=== PATIENT | female | born 1995 | race Caucasian/White ===

== ENCOUNTER 2017-05-04 10:49 | Emergency (ER) | payer OTHER ==
[~2017-05-04] VITALS: Ht 167.6 cm; Wt 60.0 kg
[2017-05-04 10:54] VITALS: BP 120/75; PULSE 72; RESP 16; TEMP 98.6; O2SAT 100
[2017-05-04] MEDS ORDERED: LORazepam 1 MG TAB PO ONE (11:15)
[2017-05-04] MEDS ORDERED: ACETAMINOPHEN 325 MG TAB PO ONE (11:15)
--- NOTE | 2017-05-04 11:24 | PD ---
HPI Chief Complaint: Neuro Symptoms/ Deficits Time Seen by Provider: 11:10 Travel History International Travel<30 days: No Contact w/Intl Traveler<30days: No Traveled to known affect area: No History of Present Illness HPI 22yo F with PMH of anxiety here with c/o episode of tingling sensation in bilateral arms while at work today. States now she just has tingling in bilateral finger tips. States she was looking at a credit card and didnt know what to say for a second. Then she started having bilateral temporal headache. States tingling was in the proximal and distal arms but spares the middle. She has had these episodes before. Pt denies any fever, cough, neck pain, chest pain, sob, n/v, abdominal pain, focal weakness. Denies any drug use. PFSH Past Medical History Medical History: Denies Significant Hx ?: Not LMP: IMPLANT Past Surgical History Surgical History: No Previous Surgery Social History Alcohol Use: No Tobacco Use: No Substance Use: No Allergies-Medications (Allergen,Severity, Reaction): Coded Allergies: Sean (Verified Allergy, Severe, HIVES, 05/04/17) Reported Meds & Prescriptions Reported Meds & Active Scripts Active Tylenol (Acetaminophen) 325 Mg Tab 650 Mg PO Q6H PRN Review of Systems Except as stated in HPI: all other systems reviewed are Neg Physical Exam Narrative GENERAL: 22yo F anxious appearing. SKIN: Focused skin assessment warm/dry. HEAD: Atraumatic. Normocephalic. EYES: Pupils equal and round at 4mm bilaterally. EOMI. No scleral icterus. No injection or drainage. ENT: No nasal bleeding or discharge. Mucous membranes pink and moist. NECK: Trachea midline. No JVD. CARDIOVASCULAR: Regular rate and rhythm. No murmur appreciated. RESPIRATORY: No accessory muscle use. Clear to auscultation. Breath sounds equal bilaterally. GASTROINTESTINAL: Abdomen soft, non-tender, nondistended. No rebound tenderness or guarding. MUSCULOSKELETAL: No obvious deformities. No clubbing. No cyanosis. No edema. Tremors in her chin, states she always has this and it is related to her jaw muscles. NEUROLOGICAL: Awake and alert. No obvious cranial nerve deficits. Motor grossly within normal limits. Normal speech. PSYCHIATRIC: Anxious appearing. Data Data Last Documented VS Vital Signs Date Time Temp Pulse Resp B/P Pulse Ox O2 Delivery O2 Flow Rate FiO2 05/04/17 10:54 98.6 72 16 120/75 100 Room Air Orders Lorazepam (Ativan) (05/04/17 11:15) Acetaminophen (Tylenol) (05/04/17 11:15) Complete Blood Count With Diff (05/04/17 11:10) Basic Metabolic Panel (Bmp) (05/04/17 11:10) Thyroid Stimulating Hormone (05/04/17 11:10) Electrocardiogram (05/04/17 ) Labs Laboratory Tests Test 05/04/17 11:20 White Blood Count 8.3 TH/MM3 Red Blood Count 4.81 MIL/MM3 Hemoglobin 14.5 GM/DL Hematocrit 41.7 % Mean Corpuscular Volume 86.8 FL Mean Corpuscular Hemoglobin 30.1 PG Mean Corpuscular Hemoglobin 34.7 % Concent Red Cell Distribution Width 13.4 % Platelet Count 276 TH/MM3 Mean Platelet Volume 6.4 FL Neutrophils (%) (Auto) 47.1 % Lymphocytes (%) (Auto) 29.8 % Monocytes (%) (Auto) 12.1 % Eosinophils (%) (Auto) 10.7 % Basophils (%) (Auto) 0.3 % Neutrophils # (Auto) 3.9 TH/MM3 Lymphocytes # (Auto) 2.5 TH/MM3 Monocytes # (Auto) 1.0 TH/MM3 Eosinophils # (Auto) 0.9 TH/MM3 Basophils # (Auto) 0.0 TH/MM3 CBC Comment DIFF FINAL Differential Comment Sodium Level 138 MEQ/L Potassium Level 4.1 MEQ/L Chloride Level 104 MEQ/L Carbon Dioxide Level 24.8 MEQ/L Anion Gap 9 MEQ/L Blood Urea Nitrogen 11 MG/DL Creatinine 0.72 MG/DL Estimat Glomerular Filtration 102 ML/MIN Rate Random Glucose 88 MG/DL Calcium Level 9.5 MG/DL Thyroid Stimulating Hormone 5.490 uIU/ML 3rd Gen [facility] Medical Decision Making Medical Screen Exam Complete: Yes Emergency Medical Condition: Yes Interpretation(s) EKG: NSR 75bpm. Normal axis. No ST segment elevation or depression. TWI V2. Laboratory Tests Test 05/04/17 11:20 White Blood Count 8.3 TH/MM3 (4.0-11.0) Red Blood Count 4.81 MIL/MM3 (4.00-5.30) Hemoglobin 14.5 GM/DL (11.6-15.3) Hematocrit 41.7 % (35.0-46.0) Mean Corpuscular Volume 86.8 FL (80.0-100.0) Mean Corpuscular Hemoglobin 30.1 PG (27.0-34.0) Mean Corpuscular Hemoglobin 34.7 % Concent (32.0-36.0) Red Cell Distribution Width 13.4 % (11.6-17.2) Platelet Count 276 TH/MM3 (150-450) Mean Platelet Volume 6.4 FL (7.0-11.0) Neutrophils (%) (Auto) 47.1 % (16.0-70.0) Lymphocytes (%) (Auto) 29.8 % (9.0-44.0) Monocytes (%) (Auto) 12.1 % (0.0-8.0) Eosinophils (%) (Auto) 10.7 % (0.0-4.0) Basophils (%) (Auto) 0.3 % (0.0-2.0) Neutrophils # (Auto) 3.9 TH/MM3 (1.8-7.7) Lymphocytes # (Auto) 2.5 TH/MM3 (1.0-4.8) Monocytes # (Auto) 1.0 TH/MM3 (0-0.9) Eosinophils # (Auto) 0.9 TH/MM3 (0-0.4) Basophils # (Auto) 0.0 TH/MM3 (0-0.2) CBC Comment DIFF FINAL Differential Comment Sodium Level 138 MEQ/L (136-145) Potassium Level 4.1 MEQ/L (3.5-5.1) Chloride Level 104 MEQ/L (98-107) Carbon Dioxide Level 24.8 MEQ/L (21.0-32.0) Anion Gap 9 MEQ/L (5-15) Blood Urea Nitrogen 11 MG/DL (7-18) Creatinine 0.72 MG/DL (0.50-1.00) Estimat Glomerular Filtration 102 ML/MIN Rate (>89) Random Glucose 88 MG/DL (74-106) Calcium Level 9.5 MG/DL (8.5-10.1) Thyroid Stimulating Hormone 5.490 uIU/ML 3rd Gen (0.358-3.740) Differential Diagnosis Anxiety vs. complex migraine vs. electrolyte abnormality vs. conversion disorder Narrative Course 22 well appearing female here with complaints of tingling in bilateral arm and then finger tips at work today. No focal neurologic deficits on exam. Now with mild headache. VS stable. Pt given ativan 1mg PO and acetaminophen 650mgs PO and reevaluated at bedside. States that headache and tingling in fingers has resolved. Pt states she was in [place] but returned in February 2017 and does not have any symptoms. Denies any fever. Labs reviewed, no leukocytosis. H/H 14.5 /41.7. Calcium normal. Electrolytes normal. TSH is elevated at 5.490. Informed pt of this and to follow up with her PMD for further thyroid function test. Return precautions given. Diagnosis Primary Impression: Headache Qualified Code: R51 - Acute nonintractable headache, unspecified headache type Additional Impression: Elevated TSH Patient Instructions: General Instructions Departure Forms: Tests/Procedures Additional Instructions: Your thyroid stimulating hormone is elevated at 5.49 today. Please follow up with your primary care physician for further work up. Please return to the ED if your symptoms return or worsen. Med/Other Pt SpecificInfo: Prescription(s) given Scripts Acetaminophen (Tylenol)325 Mg Inw951 Mg PO Q6H PRN (PAIN SCALE 1 TO 4) #20 TAB Ref 0 Prov:Kristyn Simons DO 05/04/17 Disposition: 01 DISCHARGE HOME Condition: Stable Krisytn Simons DO May 04, 2017 11:23 Kristyn Simons DO May 04, 2017 11:23
[2017-05-04 11:32] LABS: AUTOMATED NEUTROPHIL # 3.9 TH/MM3 (1.8-7.7); BASOPHIL % 0.3 % (0.0-2.0); EOSINOPHIL # 0.9 TH/MM3 (0-0.4); EOSINOPHIL % 10.7 % (0.0-4.0); HEMATOCRIT 41.7 % (35.0-46.0); HEMO FLAGS DIFF FINAL; LYMPH % 29.8 % (9.0-44.0); LYMPHOCYTE # 2.5 TH/MM3 (1.0-4.8); MEAN CELL VOLUME 86.8 FL (80.0-100.0); MEAN CORPUSCULAR HEMOGLOBIN 30.1 PG (27.0-34.0); MEAN CORPUSCULAR HGB CONC 34.7 % (32.0-36.0); MONO % 12.1 % (0.0-8.0); NEUT % 47.1 % (16.0-70.0); PLATELET COUNT 276 TH/MM3 (150-450); RED BLOOD COUNT 4.81 MIL/MM3 (4.00-5.30); RED CELL DISTRIBUTION WIDTH 13.4 % (11.6-17.2); WHITE BLOOD COUNT 8.3 TH/MM3 (4.0-11.0)
[2017-05-04 11:50] LABS: BICARBONATE 24.8 MEQ/L (21.0-32.0); POTASSIUM 4.1 MEQ/L (3.5-5.1)
[2017-05-04] MEDS ORDERED: TYLE325T PO (13:53)
--- NOTE | 2017-05-05 16:03 | EKG ---
Date Performed: 05/04/2017 Time Performed: 11:35:55 PTAGE: 22 years EKG: Sinus rhythm WITH SINUS ARRHYTHMIA WITH SHORT IA INTERVAL BORDERLINE ECG NO PREVIOUS TRACING DOCTOR: Serafin Mejia Interpretating Date/Time 05/05/2017 16:02:39
== END 2017-05-04 14:19 | disposition home or self-care (01) ==
LOC: NEPE 10:49
DX: R51 Headache (principal); I49.8 Other specified cardiac arrhythmias; R94.6 Abnormal results of thyroid function studies
CPT/HCPCS: 80048; 84443; 85025; 93005; 99284